=== PATIENT | female | born 1995 | race Two or more races ===

== ENCOUNTER 2018-12-28 07:15 | Inpatient (IN) | payer OTHER ==
[~2018-12-28] VITALS: Ht 157.5 cm; Wt 3.2 kg
[2018-12-28] MEDS ORDERED: OBSTETRIX DHA1 EACH PO (08:45)
== END 2018-12-31 10:44 | disposition home or self-care (01) | DRG 788 ==
LOC: LDR 07:15 → OB/GYN 14:12
PROVIDERS: ADMIT Specialist
PROC: 4A1HXCZ Monitoring of Products of Conception, Cardiac Rate, External Approach (ICD-10-PCS; 2018-12-28)
PROC: 10D00Z1 Extraction of Products of Conception, Low, Open Approach (ICD-10-PCS; principal; 2018-12-28 11:00)
DX: O82 Encounter for cesarean delivery without indication (principal); Z3A.39 39 weeks gestation of pregnancy; Z37.0 Single live birth